=== PATIENT | female | born 1995 | race Caucasian/White ===

== ENCOUNTER 2019-01-29 14:25 | Emergency (ER) | payer OTHER ==
[~2019-01-29] VITALS: Ht 149.9 cm; Wt 52.6 kg
[2019-01-29 14:31] VITALS: BP 106/73
--- NOTE | 2019-01-29 14:35 | NUR ---
OU- OS- OD-
--- NOTE | 2019-01-29 14:39 | NUR ---
PT C/O LEFT EYE PAIN, REDNESS, ITCHY, AND TEARING X 3 DAYS. NO VISUAL CHANGES WITH NORMAL VISUAL ACUITY. PATIENT STATES PAIN OF 6/10 AT THIS TIME; VSS; PATIENT POSITIONED FOR COMFORT; HOB ELEVATED; BEDRAILS UP X1; BED DOWN. ER MD MADE AWARE OF PT STATUS.
[2019-01-29 15:31] VITALS: BP 106/73
--- NOTE | 2019-01-29 15:31 | NUR ---
Patient discharged with v/s stable. Written and verbal after care instructions given and explained. Patient alert, oriented and verbalized understanding of instructions. Ambulatory with steady gait. All questions addressed prior to discharge. ID band removed. Patient advised to follow up with PMD. Rx of BLEPH-10 10% OPTHALMIC SOLUTION, BACTRIM given. Patient educated on indication of medication including possible reaction and side effects. Opportunity to ask questions provided and answered.
== END 2019-01-29 15:31 | disposition home or self-care (01) ==
LOC: MED 14:25
DX: H00.015 Hordeolum externum left lower eyelid (principal)
CPT/HCPCS: 99283